=== PATIENT | male | born 2000 | race Caucasian/White ===

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

== ENCOUNTER 2023-06-11 12:54 | Emergency (ER) | payer BC, SELFPAY ==
[2023-06-11 13:25] VITALS: BP 122/95; PULSE 140; RESP 16; TEMP 36.6; O2SAT 100
[2023-06-11 13:34] VITALS: PULSE 122; RESP 17; O2SAT 100
[2023-06-11] MEDS: TETANUS,DIPHTHERIA,AC PERTUSSIS ADULT (0.5 ML) BOOSTRIX IM (14:23)
[2023-06-11 14:24] VITALS: PULSE 122; RESP 18; O2SAT 100
--- NOTE | 2023-06-11 14:41 | ED.GENADULT ---
HPI - General Adult General Chief complaint: Skin/Abscess/Foreign Body Stated complaint: cyst to buttock area Time Seen by Provider: 06/11/23 13:30 Source: patient Mode of arrival: ambulatory Limitations: no limitations History of Present Illness HPI narrative: 22-year-old otherwise healthy here with complaints of pain and swelling in the gluteal area for past few days. He denies any fever or chills no history of trauma. Onset (ago): day(s) (2) Radiation: non-radiation Quality: aching Pain Consistency: constant Relieving factors: none Associated symptoms: denies other symptoms Related Data Allergies Allergy/AdvReac Type Severity Reaction Status Date / Time Penicillins Allergy Mild Verified 02/28/17 18:49 Review of Systems Review of Systems: All systems reviewed & are unremarkable except as noted in HPI and below Constitutional: Constitutional: Reports no additional constitutional complaints Eyes: Eyes: Reports no additional eye complaints ENT: Reports system reviewed and no additional complaints, except as documented Cardiovascular: Cardiovascular: Reports no additional cardiovascular complaints Respiratory: Respiratory: Reports no additional respiratory complaints Gastrointestinal: Gastrointestinal: Reports no additional gastrointestinal complaints Musculoskeletal: Musculoskeletal: Reports no additional musculoskeletal complaints Integumentary/Breasts: Skin/Breast: Reports as per HPI Neurologic: Reports system reviewed and no additional complaints, except as documented Course Course Emergency Course: Patient was informed about the procedure, did I and D moderate amount of muscle strain and was packed. He tolerated well advised him to take antibiotic as prescribed. Vital Signs Vital signs: Vital Signs Temperature 36.6 C 06/11/23 13:25 Pulse Rate 140 H 06/11/23 13:25 Respiratory Rate 16 06/11/23 13:25 Blood Pressure 122/95 H 06/11/23 13:25 Pulse Oximetry 100 06/11/23 13:25 Temperature 36.6 C 06/11/23 13:25 Pulse Rate 122 H 06/11/23 14:24 Respiratory Rate 18 06/11/23 14:24 Blood Pressure 122/95 H 06/11/23 13:25 Pulse Oximetry 100 06/11/23 14:24 Procedures Abscess I/D other: Date of Incision: 06/11/23 Side (if applicable): left and right Sedation/analgesia: none Local Anesthetic: lidocaine 1% Amount of anesthesia used (mL): 5 Technique: incised with #11 blade Amount of fluid expressed (mL): 20 Irrigation: No Packing used?: plain I&D Results: Pus Complications: pain Medical Decision Making Vital Signs Vital Signs: Vital Signs Temperature 36.6 C 06/11/23 13:25 Pulse Rate 140 H 06/11/23 13:25 Respiratory Rate 16 06/11/23 13:25 Blood Pressure 122/95 H 06/11/23 13:25 Pulse Oximetry 100 06/11/23 13:25 Temperature 36.6 C 06/11/23 13:25 Pulse Rate 122 H 06/11/23 14:24 Respiratory Rate 18 06/11/23 14:24 Blood Pressure 122/95 H 06/11/23 13:25 Pulse Oximetry 100 06/11/23 14:24 Discharge Plan Discharge Clinical Impression: Abscess of gluteal cleft Patient Disposition: Home, Self-Care Condition: Stable Instructions: Antibiotic Form, Abscess (ED) Additional Instructions: Take antibiotic as directed . Prescriptions: New doxycycline hyclate 100 mg capsule 100 mg PO DAILY Qty: 14 0RF hydrocodone-acetaminophen 5-325 mg tablet 1 tablet PO Q8H PRN (Reason: pain) Qty: 10 0RF Follow-up/Referrals: PHYSICIAN,SALESPERSON TERRAZZO TILES [Primary Care Provider] - José Lieberman DO [Physician] - Stand Alone Forms: Work/School Release IP Time of Disposition: 14:47
[2023-06-11 14:51] VITALS: BP 133/82; PULSE 114; RESP 15; O2SAT 99
== END 2023-06-11 14:52 | disposition home or self-care (01) ==
PROVIDERS: Emergency Provider Family Medicine
DX: L02.31 Cutaneous abscess of buttock (principal); Z23 Encounter for immunization
CPT/HCPCS: 10061; 87070; 87077; 87205; 90471; 90715; 99283